=== PATIENT | female | born 1975 | race Caucasian/White ===

== ENCOUNTER 2018-10-25 09:58 | Day surgery (SDC) | payer OTHER ==
[~2018-10-25] VITALS: Ht 157.5 cm; Wt 84.9 kg
[2018-10-25] MEDS ORDERED: B-12 500 MCG (10:19)
[2018-10-25] MEDS ORDERED: MULTI VITAMINS1 TAB PO (10:19)
[2018-10-25] MEDS ORDERED: VITAMIND3 5000 PO (10:20)
[2018-10-25] MEDS ORDERED: DULERA1 ARO IH (10:21)
[2018-10-25] MEDS ORDERED: ZIKS HEMATOGEN1 SG1 (10:21)
[2018-10-25] MEDS ORDERED: PROAIR HFA0.09 MG/AC IH (10:22)
[2018-10-25 10:41] VITALS: BP 115/74; PULSE 75; TEMP 98.6
[2018-10-25 11:25] VITALS: BP 115/74; PULSE 58
--- NOTE | 2018-10-25 11:25 | NUR ---
Pt to [facility] via cart from endo. Pt awake and alert. Pt ambulates to recliner. Warm blanket given. Pt states she feels hypoglycemic. Soda and muffin given per pt request. Will continue montior. Call light within reach.
[2018-10-25 11:40] VITALS: BP 100/56; PULSE 68
--- NOTE | 2018-10-25 11:40 | NUR ---
Pt continues to rest. Tolerating food and fluids without difficulties. Call light within reach.
[2018-10-25 11:55] VITALS: BP 101/57; PULSE 64
--- NOTE | 2018-10-25 11:55 | NUR ---
Pt continues to rest. Family at side.
--- NOTE | 2018-10-25 12:00 | NUR ---
Discharge instructions reviewed. Pt voices understanding. IV site discontinued with all parts intact. Pt up to rest. Call light within reach.
--- NOTE | 2018-10-25 12:25 | NUR ---
Pt escorted to private car via wheel chair. Pt accompanied home by her .
== END 2018-10-25 12:25 | disposition home or self-care (01) ==
LOC: SDCO 09:58
DX: K31.89 Other diseases of stomach and duodenum (principal); D50.9 Iron deficiency anemia, unspecified; F41.9 Anxiety disorder, unspecified; J45.909 Unspecified asthma, uncomplicated; Z91.040 Latex allergy status; Z88.0 Allergy status to penicillin; Z88.2 Allergy status to sulfonamides
CPT/HCPCS: OP; J2250; J3010; J7030

== ENCOUNTER → 2018-11-06 | Outpatient (CLI) | payer OTHER ==
[~2018-11-06] MED LIST: B-12 500 MCG; DULERA1 ARO IH; MULTI VITAMINS1 TAB PO; PROAIR HFA0.09 MG/AC IH; VITAMIND3 5000 PO; ZIKS HEMATOGEN1 SG1
== END ==
LOC: MC.RAD 14:32
DX: Z12.31 Encounter for screening mammogram for malignant neoplasm of breast (principal)

== ENCOUNTER 2018-12-16 14:30 | Outpatient (RCR) | payer OTHER ==
[2018-12-05 15:07] VITALS: BP 109/71; PULSE 69; TEMP 98.3
[2018-12-09 14:47] VITALS: BP 110/59; PULSE 64; TEMP 98
[2018-12-12 14:58] VITALS: BP 124/51; PULSE 60; TEMP 98.1
[2018-12-16 14:49] VITALS: BP 107/69; PULSE 59; TEMP 98.5
== END 2018-12-16 15:50 | disposition home or self-care (01) ==
LOC: EUO 14:30
DX: D50.9 Iron deficiency anemia, unspecified (principal); Z98.84 Bariatric surgery status
CPT/HCPCS: J2916